=== PATIENT | male | born 1960 | race Caucasian/White ===

== ENCOUNTER 2017-04-13 19:38 | Emergency (ER) | payer SELFPAY ==
[2017-04-13 19:43] VITALS: BP 109/88; PULSE 74; TEMP 98; BMI 26.4
--- NOTE | 2017-04-13 21:24 | PDOC ---
History of Present Illness - General History Source: Patient Exam Limitations: No Limitations - History of Present Illness Initial Comments: 04/13/17 21:28 The patient is a 56 year old male, with no significant past medical history, who presents to the emergency department with, approx. 5 days of subjective fever, dry cough, generalized body aches, rhinorrhea, sore throat and dizziness. The patient reports that beginning Tuesday night he began feeling very dizzy and warm to touch. The patient states he had left over antibiotics in the house (pt. is unsure of the name of antibiotics) and reports he took 3 of the antibiotics for his symptoms with minimal relief. The patient states the dry cough has been mildly painful and reports drinking tea with honey with mild relief. He denies any sick contacts. He denies any recent nausea, vomit, diarrhea or constipation. He denies any recent chest pain or shortness of breath. He denies any recent dysuria, frequency, urgency or hematuria. He denies any recent hemoptysis. Allergies: NKA Social History: Ex-smoker (Patient reports he quit approx. 5 years ago). <Ariel Clarke - Last Filed: 04/13/17 21:35> <Vannesa Lobato - Last Filed: 04/14/17 04:55> - General Chief Complaint: Cold Symptoms Stated Complaint: COUGH Time Seen by Provider: 04/13/17 19:42 Past History <Ariel Clarke - Last Filed: 04/13/17 21:35> - Past Medical History COPD: No Other medical history: DENIES - Suicide/Smoking/Psychosocial Hx Smoking History: Former smoker Have you smoked in the past 12 months: Yes Number of Cigarettes Smoked Daily: 20 If you are a former smoker, when did you quit?: 6 MONTHS AGO Information on smoking cessation initiated: No Hx Alcohol Use: Yes Drug/Substance Use Hx: No Substance Use Type: Alcohol <Vannesa Lobato - Last Filed: 04/14/17 04:55> - Past Medical History Allergies/Adverse Reactions: Allergies Allergy/AdvReac Type Severity Reaction Status Date / Time No Known Allergies Allergy Verified 04/13/17 19:39 Home Medications: Ambulatory Orders NK [No Known Home Medication] 04/13/17 Review of Systems - Review of Systems Comments:: 04/13/17 21:29 GENERAL/CONSTITUTIONAL: +Subjective fever. No chills. No weakness. HEAD, EYES, EARS, NOSE AND THROAT: +Sore throat. +Rhinorrhea. No change in vision. No ear pain or discharge. CARDIOVASCULAR: No chest pain or shortness of breath. RESPIRATORY: +Dry cough. No wheezing, or hemoptysis. GASTROINTESTINAL: No nausea, vomiting, diarrhea or constipation. GENITOURINARY: No dysuria, frequency, or change in urination. MUSCULOSKELETAL: +Generalized body aches. No neck or back pain. SKIN: No rash NEUROLOGIC: +Dizziness. No headache, loss of consciousness, or change in strength/sensation. ENDOCRINE: No increased thirst. No abnormal weight change. HEMATOLOGIC/LYMPHATIC: No anemia, easy bleeding, or history of blood clots. ALLERGIC/IMMUNOLOGIC: No hives or skin allergy. <Ariel Clarke - Last Filed: 04/13/17 21:35> *Physical Exam - Vital Signs Last Vital Signs Temp Pulse Resp BP Pulse Ox 98 F 74 16 109/88 99 04/13/17 19:39 04/13/17 19:39 04/13/17 19:39 04/13/17 19:39 04/13/17 19:39 - Physical Exam Comments: 04/13/17 21:35 GENERAL: Awake, alert, and fully oriented, in no acute distress HEAD: No signs of trauma EYES: PERRLA, EOMI, sclera anicteric, conjunctiva clear ENT: Auricles normal inspection, hearing grossly normal, nares patent, oropharynx clear without exudates. Moist mucosa NECK: Normal ROM, supple, no lymphadenopathy, JVD, or masses LUNGS: Breath sounds equal, clear to auscultation bilaterally. No wheezes, and no crackles HEART: Regular rate and rhythm, normal S1 and S2, no murmurs, rubs or gallops ABDOMEN: Soft, nontender, normoactive bowel sounds. No guarding, no rebound. No masses EXTREMITIES: Normal range of motion, no edema. No clubbing or cyanosis. No cords, erythema, or tenderness NEUROLOGICAL: Cranial nerves II through XII grossly intact. Normal speech, normal gait SKIN: Warm, Dry, normal turgor, no rashes or lesions noted. <Ariel Clarke - Last Filed: 04/13/17 21:35> - Vital Signs Last Vital Signs Temp Pulse Resp BP Pulse Ox 98 F 74 16 109/88 99 04/13/17 19:39 04/13/17 19:39 04/13/17 19:39 04/13/17 19:39 04/13/17 19:39 <Vannesa Lobato - Last Filed: 04/14/17 04:55> ED Treatment Course - RADIOLOGY Radiology Studies Ordered: Category Date Time Status CHEST PA & LAT [RAD] Stat Radiology 04/13/17 19:43 Taken <Vannesa Lobato - Last Filed: 04/14/17 04:55> Progress Note - Progress Note Progress Note: Documentation has been prepared under my direction and personally reviewed by me in its entirety. I attest that this documented accurately reflects all work, treatment, procedures and medical decision making performed by me. <Vannesa Lobato - Last Filed: 04/14/17 04:55> Medical Decision Making - Medical Decision Making As noted above, this 56-year-old man presents with several day history of nonproductive cough, subjective fever and sore throat. He denies shortness of breath, wheezing, vomiting or diarrhea. He has been treating himself with over- the-counter and home remedies but is concerned because cough continues. Exam as noted: No evidence of hypoxia, wheezing or other abnormal sounds on exam. Chest x-ray was performed and this shows no evidence of infiltrate, effusions or other acute abnormalities Clinical presentation most consistent with viral bronchitis. Patient should continue to drink plenty of fluids and make sure that he uses vaporizer in air within his home. He should follow-up with his general doctor or return to the emergency room if he has persistent high fever, wheezing, difficulty breathing or if he develops vomiting/severe diarrhea. <Vannesa Lobato - Last Filed: 04/14/17 04:55> *DC/Admit/Observation/Transfer - Attestations Scribe Attestion: 04/13/17 21:30 Documentation prepared by Ariel Clarke, acting as medical laboratory assistant for Vannesa Lobato MD. <Ariel Clarke - Last Filed: 04/13/17 21:35> <Vannesa Lobato - Last Filed: 04/14/17 04:55> Diagnosis at time of Disposition: Acute bronchitis Qualifiers: Bronchitis organism: unspecified organism Qualified Code(s): J20.9 - Acute bronchitis, unspecified - Discharge Dispostion Disposition: HOME Condition at time of disposition: Stable - Patient Instructions Printed Discharge Instructions: DI for Acute Bronchitis Additional Instructions: Continue to drink plenty of fluids Ibuprofen/naproxen/acetaminophen as needed Consider using vaporizer in room at night Follow-up with your doctor within the next 2-3 days Return to ER if you have high fever or difficulty breathing
== END 2017-04-13 21:34 | disposition home or self-care (01) ==
LOC: FER 19:38
DX: J20.9 Acute bronchitis, unspecified (principal); Z87.891 Personal history of nicotine dependence
CPT/HCPCS: 71046-TC-FY; 99281-25